=== PATIENT | male | born 1960 | race Caucasian/White ===

== ENCOUNTER 2022-06-14 16:28 | Inpatient (IN) | payer OTHER ==
[2022-06-14] VITALS (119 sets, daily range): BP systolic 127; BP diastolic 79; PULSE 125–160; TEMP 98.5; O2SAT 86–100
[~2022-06-14] VITALS: Ht 182.9 cm; Wt 56.2 kg
[2022-06-14 17:10] LABS: BASO % 0.2 % (0.0-2.0); GRAN # 5.3 K/mm3 (1.4-6.5); GRAN % 87.7 % (42.2-75.2); HEMATOCRIT 35.9 % (42.0-52.0); HEMOGLOBIN 12.9 g/dl (13.5-18.0); LYMPH # 0.2 K/mm3 (1.2-3.4); MEAN CELL VOLUME 90 fl (80.0-100.0); MEAN CORPUSCULAR HEMOGLOBIN 32 pg (27-31); MEAN CORPUSCULAR HGB CONC 36 g/dl (33.0-37.0); MEAN PLATELET VOLUME 11.5 fl (7.4-10.4); MONO # 0.5 K/mm3 (0.1-0.6); MONO % 8.4 % (1.7-9.3); PLATELET COUNT 92 K/mm3 (130-400); RED BLOOD COUNT 3.98 M/mm3 (4.20-5.60); REDCELL DISTRIBUTION WIDTH-CV 15.9 % (11.5-14.5)
[2022-06-14 17:11] LABS: INR 1.3 (0.8-3.0); PROTHROMBIN TIME 14.9 SECONDS (9.7-12.8)
[2022-06-14 17:20] LABS: ALANINE AMINOTRANSFERASE 63 U/L (0-55); ALBUMIN 3.2 gm/dL (3.4-4.8); ALKALINE PHOSPHATASE 61 U/L (40-150); ANION GAP 19 mmol/L (7-16); AST,SGOT 45 U/L (5-34); BILIRUBIN,TOTAL 1.2 mg/dL (0.2-1.2); BLOOD UREA NITROGEN 42 mg/dL (8-26); CALCIUM 8.2 mg/dL (8.4-10.2); CARBON DIOXIDE 18 mmol/L (23-31); CHLORIDE 96 mmol/L (98-107); CREATINE KINASE 459 U/L (30-200); CREATININE, serum 1.27 mg/dL (0.72-1.25); GLUCOSE 89 mg/dL (70-99); SODIUM 133 mmol/L (136-145); TOTAL PROTEIN 5.6 gm/dL (6.2-8.1)
[2022-06-14 17:26] LABS: TROPONIN-I 0.025 ng/mL (0.00-0.033)
[2022-06-14 17:27] LABS: ALCOHOL(ethanol),MEDICAL < 10 mg/dL (0-10)
[2022-06-14 18:29] LABS: COLLECTION METHOD CLEAN CATCH
[2022-06-14 18:35] LABS: MUCOUS Present (NOT PRESENT); PH 5 (5-8); SQUAMOUS EPITHELIAL 0-2 /hpf (0-10); URINE APPEARANCE Hazy (CLEAR/HAZY); URINE BACTERIA None Seen /hpf (NONE SEEN); URINE BLOOD 1+ (NEGATIVE); URINE COLOR Yellow (YELLOW); URINE GLUCOSE Negative (NEGATIVE); URINE KETONE Negative (NEGATIVE); URINE NITRATE Negative (NEGATIVE); URINE PROTEIN(semi-quant) Negative (NEGATIVE); URINE RBC 0-2 /hpf (0-2); URINE UROBILINOGEN Negative (NEGATIVE)
[2022-06-14 18:45] LABS: TRICYCLIC ANTIDEPRESS URINE NEGATIVE
--- NOTE | 2022-06-14 21:11 | NUR ---
Recieved report from ED nurse, Kacey.
--- NOTE | 2022-06-14 21:22 | NUR ---
Patient arrives to ICU room 2 via ED stretcher. Patient is alert but confused; oriented only to self. Speech is clear. He follows verbal commands. He is able to ambulate to ICU bed with minimal assistance, gait is unsteady. Initial vitals within normal limits. HR upon arrival is irregular and ranges 110-120s, appears to be in afib; Tasneem hospitalist at bedside and aware.
--- NOTE | 2022-06-14 22:02 | NUR ---
Patient alert but confused. Unable to accurately assess history, vaccination status, or complete COVID screening. He denies having thoughts of self harm or suicide when asked.
--- NOTE | 2022-06-14 22:07 | NUR ---
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 Patient denies having hearing aids or dentures. He reports wearing glasses at home to read; no glasses noted within belongings. Patient unable to recall code to unlock his cellphone. Message left with NOK listed on patient's face sheet, Kaela Vizcarra. Patient states this is his daughter. No other contact information available for patient at this time.
[2022-06-14 23:25] LABS: PARTIAL THROMBOPLASTIN TIME 29.4 SECONDS (26.0-37.0)
[2022-06-15] VITALS (1030 sets, daily range): BP systolic 76–124; BP diastolic 60–86; PULSE 75–116; TEMP 97.4–98.7; O2SAT 61–100
--- NOTE | 2022-06-15 06:40 | NUR ---
Received call from a Kirstin Hawkins, who states she is an acquaintance of the patient. Kirstin states she received a message from this hospital requesting social/medical history regarding the patient. Kirstin does not know much about the patient's medical history, other than he is known to consume alcohol on a regular basis. She states he is a member of the [facility] and that the [facility] in [place] may have more information about his medical history. Per Kirstin, the patient lives in [place], [place]. She is unsure why he would have been in the [facility]. She states the patient once used to rent a room from her but that she stopped contact with him once he found his own place and began heavily consuming alcohol on a regular basis. She believes he drives a [employer]-type vehicle, and that the sagger soak she shares with the patient noticed his vehicle was missing from his residence approximately two days ago. Kirstin Hawkins left her contact number with staff, . She denies knowning other contact numbers or family members associated with the patient.
[2022-06-15 06:59] LABS: EOS % 0.1 % (0.0-4.0); GRAN # 6.4 K/mm3 (1.4-6.5); LYMPH # 0.6 K/mm3 (1.2-3.4); LYMPH % 7.3 % (20.0-51.0); MEAN CELL VOLUME 93 fl (80.0-100.0); MEAN CORPUSCULAR HEMOGLOBIN 32 pg (27-31); MEAN CORPUSCULAR HGB CONC 34 g/dl (33.0-37.0); MONO % 11.9 % (1.7-9.3); PLATELET COUNT 102 K/mm3 (130-400); RED BLOOD COUNT 4.08 M/mm3 (4.20-5.60); REDCELL DISTRIBUTION WIDTH-CV 16.2 % (11.5-14.5)
[2022-06-15 07:15] LABS: ALBUMIN 2.8 gm/dL (3.4-4.8); BILIRUBIN,TOTAL 1.2 mg/dL (0.2-1.2); CREATININE, serum 0.75 mg/dL (0.72-1.25); MAGNESIUM 2.3 mg/dL (1.6-2.6); POTASSIUM 3.4 mmol/L (3.5-4.5); TOTAL PROTEIN 5.1 gm/dL (6.2-8.1)
[2022-06-15 07:35] LABS: THYROID STIMULATING HORMONE 2.343 uIU/mL (0.350-4.940)
--- NOTE | 2022-06-15 07:45 | NUR ---
RECEIVED SHIFT REPORT FROM RAMAN MARTINES. PATIENT IS IN BED SUPINE WITH EYES CLOSED. CALL LIGHT WITHIN REACH, IV FLUIDS AND HEPARIN GTT STILL GOING AND ATTEMPTS TO VOID IN THE URINAL WITH ASSISTANCE. NO CONCERNS AT THIS TIME. PATIENT HAS BEEN REPORTED TO BE PLEASANTLY CONFUSED. WILL CONSULT HOSPITALIST REGARDING CIWA SCALE IN THE NEAR FUTURE FOR POSSIBLE WITHDRAWAL SYPTOM MANAGEMENT.
--- NOTE | 2022-06-15 09:01 | NUR ---
(Late Entry) Upon ED admit, MARIPOSA and house carpenter helper attempted to charge the patient's phone to access emergency contact information and was unsuccessful. Phone number for a "Tod" found in the patient's wallet and attempt made to contact him however it was unsuccessful. VA identification found in the patient's wallet. Attempt made to contact the VA for emergency conact information and was told by the VA rep. that it would be a "felony to relese the veterans information without consent". Patient's banking information found in the patient's wallet as well and attempt made to contact the police dept. for that jurisdiction and it was found that he had not lived in the residence listed on check since 2009. Patient had a COVID-19 vaccine card that was received at a [employer]. Attempt made to contact that store to get emergency contact information and was unsuccessful. dimension quarry supervisor provided update.
--- NOTE | 2022-06-15 09:12 | NUR ---
RECEIVED UPDATE FROM RAMAN RODGERS REGARDING PATIENT'S CURRENT ECONOMICAL STATUS. NURSE OBTAINED THIS INFORMATION AFTER TALKING WITH PATIENT'S DAUGHTER, STANLEY WHO IS NEXT OF KIN.
--- NOTE | 2022-06-15 09:13 | NUR ---
Patient daughter Kaela Vizcarra ([phone]) contacted the unit this morning. SW present during conversation between RN and Kaela. Patient is a heavy alcohol user and will also use hallucinogenics. Patient is not legally . Legal next of kin established is his daughter Kaela. At this time the patient is still experiencing confusion.
--- NOTE | 2022-06-15 10:30 | NUR ---
DR. MEZA AT BEDSIDE. DISCUSSED PLAN OF CARE. AGREEABLE TO [facility].
--- NOTE | 2022-06-15 10:33 | NUR ---
Initial visit attempt; Patient resting, Milk Vendor left card offering God's blessings and information regarding the availability of Spiritual Care at our hospital.
--- NOTE | 2022-06-15 11:19 | NUR ---
Phone message received back from Carl, who states that he may have done business with the patient in the past, but cannot remember who he is.
[2022-06-15] MEDS ORDERED: OPTIVE SENSITI0.4 ML OP (16:26)
[2022-06-15] MEDS ORDERED: VITAMIN D31000 IU PO (17:48)
[2022-06-15] MEDS ORDERED: LEXAPRO 10MG10 MG PO (17:49)
[2022-06-15] MEDS ORDERED: MAXZIDE-25MG TA1 TAB PO (17:52)
[2022-06-15] MEDS ORDERED: PRILOSEC 20MG20 MG PO (17:53)
[2022-06-15] MEDS ORDERED: FLEXERIL 1010 MG/TAB PO (17:54)
--- NOTE | 2022-06-15 18:35 | NUR ---
SPOKE TO PATIENT'S [id number] WHILE PATIENT WAS ON THE PHONE WITH HER. WAS ABLE TO GIVE SOME HISTORY. A NOTE WAS PLACED IN THE PAPER CHART WITH HER PHONE NUMBER.
--- NOTE | 2022-06-15 19:00 | NUR ---
Received report from RAMAN Mendez.
--- NOTE | 2022-06-15 20:00 | NUR ---
Patient sleeping quietly in bed. All vitals within normal limits; patient is on room air. Continues to receive heparin drip, see IV drip titration. Bed in lowest position, all alarms on.
[2022-06-16] VITALS (9 sets, daily range): BP systolic 104–139; BP diastolic 67–96; PULSE 58–82; TEMP 97–98.6; O2SAT 74–96
--- NOTE | 2022-06-16 09:40 | NUR ---
DR. DAVIS AT BEDSIDE. ORDER TO DISCONTINUE HEPARIN GTT AND DECREASE LR TO 60ML/HR
[2022-06-16 10:36] LABS: BASO % 0.1 % (0.0-2.0); EOS % 0.3 % (0.0-4.0); GRAN # 5.3 K/mm3 (1.4-6.5); GRAN % 76.5 % (42.2-75.2); HEMATOCRIT 38.1 % (42.0-52.0); HEMOGLOBIN 13.6 g/dl (13.5-18.0); LYMPH # 0.8 K/mm3 (1.2-3.4); LYMPH % 11.5 % (20.0-51.0); MEAN CELL VOLUME 91 fl (80.0-100.0); MEAN CORPUSCULAR HEMOGLOBIN 33 pg (27-31); MEAN CORPUSCULAR HGB CONC 36 g/dl (33.0-37.0); MEAN PLATELET VOLUME 10.5 fl (7.4-10.4); MONO # 0.7 K/mm3 (0.1-0.6); MONO % 10.7 % (1.7-9.3); PLATELET COUNT 106 K/mm3 (130-400); RED BLOOD COUNT 4.18 M/mm3 (4.20-5.60); REDCELL DISTRIBUTION WIDTH-CV 15.4 % (11.5-14.5)
[2022-06-16 10:51] LABS: CALCIUM 8.4 mg/dL (8.4-10.2); CREATININE, serum 0.58 mg/dL (0.72-1.25); POTASSIUM 3.3 mmol/L (3.5-4.5)
--- NOTE | 2022-06-16 19:00 | NUR ---
Received report from RAMAN Scott.
[2022-06-17] VITALS (362 sets, daily range): BP systolic 97–133; BP diastolic 74–96; PULSE 66–79; TEMP 97.4–98.1; O2SAT 90–100
[2022-06-17 06:25] LABS: BASO % 0.2 % (0.0-2.0); EOS % 0.7 % (0.0-4.0); GRAN # 4.4 K/mm3 (1.4-6.5); GRAN % 73.6 % (42.2-75.2); HEMATOCRIT 40.5 % (42.0-52.0); HEMOGLOBIN 14.3 g/dl (13.5-18.0); LYMPH # 0.8 K/mm3 (1.2-3.4); LYMPH % 13.9 % (20.0-51.0); MEAN CELL VOLUME 91 fl (80.0-100.0); MEAN CORPUSCULAR HEMOGLOBIN 32 pg (27-31); MEAN CORPUSCULAR HGB CONC 35 g/dl (33.0-37.0); MEAN PLATELET VOLUME 11.4 fl (7.4-10.4); MONO # 0.6 K/mm3 (0.1-0.6); MONO % 10.6 % (1.7-9.3); PLATELET COUNT 113 K/mm3 (130-400); RED BLOOD COUNT 4.44 M/mm3 (4.20-5.60); REDCELL DISTRIBUTION WIDTH-CV 14.8 % (11.5-14.5)
[2022-06-17 07:03] LABS: CALCIUM 8.5 mg/dL (8.4-10.2); CREATININE, serum 0.57 mg/dL (0.72-1.25); MAGNESIUM 1.9 mg/dL (1.6-2.6); POTASSIUM 3.4 mmol/L (3.5-4.5)
[2022-06-18] VITALS (61 sets, daily range): BP systolic 87–154; BP diastolic 64–84; PULSE 68–100; TEMP 96.8–98.6; O2SAT 81–99
[2022-06-18 05:00] LABS: BASO % 0.2 % (0.0-2.0); EOS # 0.1 K/mm3 (0.0-0.7); EOS % 1.6 % (0.0-4.0); GRAN # 4.2 K/mm3 (1.4-6.5); GRAN % 73.3 % (42.2-75.2); HEMATOCRIT 41.3 % (42.0-52.0); HEMOGLOBIN 14.5 g/dl (13.5-18.0); LYMPH # 0.8 K/mm3 (1.2-3.4); LYMPH % 13.8 % (20.0-51.0); MEAN CELL VOLUME 92 fl (80.0-100.0); MEAN CORPUSCULAR HEMOGLOBIN 32 pg (27-31); MEAN CORPUSCULAR HGB CONC 35 g/dl (33.0-37.0); MEAN PLATELET VOLUME 11.2 fl (7.4-10.4); MONO # 0.6 K/mm3 (0.1-0.6); MONO % 10.4 % (1.7-9.3); PLATELET COUNT 127 K/mm3 (130-400); RED BLOOD COUNT 4.48 M/mm3 (4.20-5.60); REDCELL DISTRIBUTION WIDTH-CV 15.3 % (11.5-14.5)
[2022-06-18 05:15] LABS: CALCIUM 8.7 mg/dL (8.4-10.2); CREATININE, serum 0.61 mg/dL (0.72-1.25)
--- NOTE | 2022-06-18 06:53 | NUR ---
PT SEEMED TO BE MORE ALERT THAN CHART REPORTED. HAD PEPSI 6 OZ LAST NIGHT AT 2000
--- NOTE | 2022-06-18 09:20 | NUR ---
back up worker contacted the patient's sister in law Dee Dee ([phone])to obtain more information on the patient. Dee Dee states that she lives in [place], but talks to the patient everyday to make sure he is ok. States the patient was sober for "years" but has started drinking again within the last year. Dee Dee reports that the patient current state is not normal for him. Reports he was recently in the hospital ([facility]) in the [facility] this month for pain. She states that the patient and his ex Sharon about 1.5 yrs ago but still talk everyday. Dee Dee is able to share some information on his relationship with his daughter Kaela. States that they are strained due to Kaela "taking money from tSanislaw's parent's when she was taking care of them". Dee Dee does not believe that Sharon would be willing to come down and get the patient and doesn't have a plan to, even though the patient is verbalizing that Sharon is on her way down. Phone call made to Sharon ([phone]). Sharon lives in [place], [place] and states that she speaks with the patient to check in on him multiple times a day. Sharon does not have plans on picking the patient up and is not willing to pick the patient up. Sharon also states that the patient is not anywhere near his baseline and that he is very confused. She states "he is usually as shap as a tack". Sharon states the patient was sober for 7-8 years and has only began drinking within the last 6 months and thinks he is drinking around a 12 pack a day along with hard liquor. States that he moved to the [facility] around a year ago when they got . She does state within the last month he was "seeing things" and talking in a way that did not make sense to her. Sharon confirms that she is not willing to come pick the patient up. Sw attended rounding with the patient and patient's daughter contacted and placed on speaker phone during rounding.
--- NOTE | 2022-06-18 09:50 | NUR ---
Phone call made to the patient's sister in law Dee Dee to notify that the patient is medically cleared for discharge, that he will need a close follow up with multiple doctors but that the confusion appears more of a reult from the etho w/d and exposure to the elements. Sharon states that her is about 4 hours away and she will let him know he can come pick the patient up. Let Dee Dee speak with the patient for a while on phone due to his cell phone being .
--- NOTE | 2022-06-18 10:02 | NUR ---
After the patient speaks with Dee Dee, she states that she remembered that she and her both have appointments on Friday and will not be able to pick him up until . Care team updated.
--- NOTE | 2022-06-18 13:53 | NUR ---
life skills worker contacted [facility] to see if they would be able to hold the patient at their facility until . Sonia with [facility] states that they will need to do an intak with the patient and make sure the patient is able to ambulate stairs. MARIPOSA met with patient to talk about an earlier discharge than . Patient becomes upset stating " this is the only hospital that will kick a person out when they still feel like shit". Patient feels strongly about not being ready for dc. MARIPOSA explained and educated the patient that we are medically not treating him for anything at this time. Asked patient if he would be able to afford a hotel which he replied with "i don't know". MARIPOSA contacted the patients sister in law Dee Dee to talk about the above. Dee Dee is understandig of the situation and willing to pay for a hotel. Dee Dee states that she is currently at the doctors office and is called back when i was on the phone with her.
--- NOTE | 2022-06-18 15:27 | NUR ---
Notified by hospitalist that the patient is not able to discharge unless it is with family. Plan is to keep the patient until when Dee Dee can get here. Contact made with Dee Dee and notified of the above. She confirms that she will be here to pick the patient up, but that due to it being a [address] she will not be here until late afternoon.
[2022-06-19] VITALS (7 sets, daily range): BP systolic 105–148; BP diastolic 57–80; PULSE 65–84; TEMP 97.7–98.6
[2022-06-19] MEDS ORDERED: FOLIC ACID 11 MG/TA1 PO (15:21)
[2022-06-19] MEDS ORDERED: THIAMINE 1100 MG/TAB PO (15:21)
[2022-06-19] MEDS ORDERED: ELIQUIS 5MG PO (15:21)
[2022-06-19] MEDS ORDERED: CARDIZEM 60MG T60 MG PO (15:21)
--- NOTE | 2022-06-19 20:00 | NUR ---
PT IN BED. WAS PROVIDED SANDWICH BOX IT WAS TOO LATE TO ORDER A DINNER TRAY. HAS INT TO RFA, FLUSHES WELL. PT IS ORIENTED TO SELF, DID KNOW THE MONTH AND YEAR, WAS UNSURE WHAT CITY HE WAS IN AND THOUGHT [facility] WAS THE PRESIDENT. DETOX SCORE IS 0. IS COOPERATIVE AND CALM.
--- NOTE | 2022-06-19 23:30 | NUR ---
DETOX PROTOCOL DC'D PER LATHA LIQUID FERTILIZER SERVICER, PT NOT SCORING.
[2022-06-20 03:38] VITALS: BP 138/69; PULSE 78; TEMP 97.6
--- NOTE | 2022-06-20 06:00 | NUR ---
PT HAS RESTED WELL. SCHEDULED AM MED GIVEN.
--- NOTE | 2022-06-20 08:00 | NUR ---
PATIENT IS ORIENTED TO PERSON BUT IS NOT ABLE TO CORRECTLY ANSWER WHERE HE IS, WHAT HIS SITUATION IS EXACTLY OR WHO THE PRESIDENT IS. PATIENT SEEMS TO BE ANSWERING QUESTIONS WITH HIS [facility] MEMORY WITH STATMENT LIKE "HE LIVES AND WORKS IN " WHICH HIS [id number] REPORTS HASN'T BEEN TRUE FOR YEAR. PATIENT ALSO GUESSED AMANDA WAS PRESIDENT AND WASN'T SURE WHAT FACILITY/PLACE HE WAS IN. PATIENT HAS HX OF DRUG/ALCOHOL ABUSE AND WAS FOUND NON-RESPONSIVE NEAR A RIVER WITH A TEMP OF 105. VSS. AFEBRILE. NO COMPLAINTS OF PAIN OR NAUSEA. STAND BY ASSIST WITH FALL RISK PRECAUTIONS INPLACE. PATIENT OFTEN FORGETS TO CALL FOR HELP WHEN NEEDING TO GO TO THE BATHROOM, SETTING OFF THE BED ALARM MULTIPLE TIMES A DAY, AND THEN ALWAYS APPOLOGIZES. TOLERATING GENERAL DIET. AM MEDS GIVEN. RIGHT FORARM IV TO INT. VSS ON TELE. HEAD TO TOE ASSESSMENT COMPLETE. PATIENT WILL DISCHARGE LATER TONIGHT. [id number] IS DRIVING FROM [employer] AND IS PLANNING ON PICKING HIM UP AROUND 1700. PT/OT/ST CONSULTED. NO OTHER NEEDS AT THIS TIME. CALL LIGHT IN REACH.
[2022-06-20 08:02] VITALS: BP 113/61; PULSE 85; TEMP 98.3
--- NOTE | 2022-06-20 09:03 | NUR ---
SW attended clinical rounds. The patient is ready for discharge. SW contacted the patient's sister, Dee Dee, to update. Dee Dee reports that she is on her way to the hospital and should arrive around 1700 to hop picker the patient. SW to update the RN. The patient is to discharge home with his sister today, 06/20. No additional needs at this time.
[2022-06-20] MEDS ORDERED: LIPITOR 40MG TA40 MG PO (09:37)
[2022-06-20] MEDS ORDERED: PRINIVIL2.5 MG PO (09:37)
[2022-06-20] MEDS ORDERED: LOPRESSOR 225 MG/TAB PO (09:37)
[2022-06-20 12:29] VITALS: BP 112/65; PULSE 94; TEMP 98
[2022-06-20 15:29] VITALS: BP 132/77; PULSE 72; TEMP 98.1
--- NOTE | 2022-06-20 17:45 | NUR ---
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 GAVE DISCHARGE INSTRUCTIONS, PRESCRIPTIONS, MEDICATION VOUCHER FOR KATHY, AND DISCUSSED PATIENT MAKING HIS NEEDED F/U APTS WHEN HE RETURNS TO [place] WITH HIS SISTER. ANSWERED QUESTIONS/CONCERNS. PATIENT'S BELONGINGS WITH HIM. HE WAS CONFUSED ON WHICH ITEMS HE HAD WITH HIM AND ASKED FOR A BLUE BAG & PILL BOX WHICH WERE NEVER DOCUMENTED OR REPORTED ON HIS PERSON WHEN HE WAS ADMITTED. PATIENT SEEMS UNSURE ABOUT THOSE ITEMS BUT WAS RETURNED HIS CELLPHONE, CELL PARTS ROOM CLERK, WALLET, AND $400 CHECK DOCUMENTED ON HIS ADMISSION. IV DC'D AND COVERED SITE WITH [employer]ZE [employer]AN. PATIENT IS DRESSED, PACKED AND ESCORTED OUT VIA WC TO PERSONAL VEHICLE WITH [id number].
== END 2022-06-20 17:45 | disposition home or self-care (01) | DRG 922 ==
LOC: COL.ER 16:28 → ICU 19:29 → SURG 06-18 19:29
PROVIDERS: Internal Medicine; Physician Assistant; Student in an Organized Health Care Education/Training Program; ADMIT Internal Medicine
DX: T67.01XA Heatstroke and sunstroke, initial encounter (principal); I50.23 Acute on chronic systolic (congestive) heart failure; N17.9 Acute kidney failure, unspecified; E87.2 Acidosis; M62.82 Rhabdomyolysis; E87.1 Hypo-osmolality and hyponatremia; E44.0 Moderate protein-calorie malnutrition; Z68.1 Body mass index [BMI] 19.9 or less, adult; E86.0 Dehydration; D69.6 Thrombocytopenia, unspecified; G31.2 Degeneration of nervous system due to alcohol; F41.9 Anxiety disorder, unspecified; F12.90 Cannabis use, unspecified, uncomplicated; Z20.822 Contact with and (suspected) exposure to COVID-19; E87.6 Hypokalemia; F17.210 Nicotine dependence, cigarettes, uncomplicated; F10.10 Alcohol abuse, uncomplicated; I25.10 Atherosclerotic heart disease of native coronary artery without angina pectoris; I48.0 Paroxysmal atrial fibrillation; R41.0 Disorientation, unspecified; I34.0 Nonrheumatic mitral (valve) insufficiency; I11.0 Hypertensive heart disease with heart failure
CPT/HCPCS: A9500; J0282; J1644; J2060; J2785; J7030; J7050; J7060; J7120